=== PATIENT | male | born 2000 | race Caucasian/White ===

== ENCOUNTER 2025-03-02 19:12 | Emergency (ER) | payer OTHER, SELFPAY ==
[2025-03-02 19:40] VITALS: BP 142/83; PULSE 84; RESP 16; TEMP 36.9; O2SAT 98; BMI 28.1
--- NOTE | 2025-03-02 20:59 | ED.GENADULT ---
HPI - General Adult General Chief complaint: Extremity Pain/Injury, Upper Stated complaint: Punctured Rt Pointer finger Time Seen by Provider: 03/02/25 20:55 Source: patient Mode of arrival: ambulatory Limitations: no limitations History of Present Illness HPI narrative: 24-year-old male coming in today with a puncture wound to the right pointer finger. Patient was at work working with a hydraulic hose and high pressure oil came out of that hose and punctured his finger. Patient states that he go below the what he should do next and he read that the oils extremely toxic he should come in for evaluation. He states that his last tetanus shot was a year ago. Denies other injury. Related Data Previous Rx's ?Medication ?Instructions ?Recorded amoxicillin 875 mg-potassium 1 tab PO BID 7 days #14 tabs 03/02/25 clavulanate 125 mg tablet Allergies Allergy/AdvReac Type Severity Reaction Status Date / Time No Known Drug Allergies Allergy Verified 03/02/25 19:48 Review of Systems Status of ROS: Reports: 6 or more systems reviewed and unremarkable except as noted in History and below Exam Narrative: Exam Narrative: Well-nourished well-developed patient in no acute distress. Alert and oriented. Answers questions appropriately. Mood and affect are appropriate. Thoughts are goal oriented and rational. No tangential or magical thinking noted. Patient speaks in full sentences without needing to catch his breath. HEENT: Normocephalic atraumatic. Pupils are equally round reactive to light. Extraocular muscles are intact. Conjunctivae are moist without any icterus noted. Extremities: Patient has a very small puncture wound on the pad of the pointer finger on the right. The pad of the finger swollen. He has no tenderness over the bony part of the distal phalanx. The remainder the fingers entirely normal. The wound is clean. Skin: Well perfused Const: Vital Signs, click to edit/add: Vital Signs - 24 hr 03/02/25 19:40 Temperature 98.5 F Pulse Rate [Right Pulse Oximeter] 84 Respiratory Rate 16 Blood Pressure [Ri ght Upper Arm] 142/83 H Pulse Oximetry 98 Oxygen Delivery Me thod Room Air Course Vital Signs Vital signs: Initial Vital Signs Temperature 98.5 F 03/02/25 19:40 Temperature Source Temporal Artery Scan 03/02/25 19:40 Pulse Rate 84 03/02/25 19:40 Respiratory Rate 16 05/02/25 19:40 Blood Pressure 142/83 H 03/02/25 19:40 Blood Pressure Mean 102 03/02/25 19:40 Blood Pressure Position Sitting 03/02/25 19:40 Pulse Oximetry 98 03/02/25 19:40 Oxygen Delivery Method Room Air 03/02/25 19:40 Vital Signs Temperature 98.5 F 03/02/25 19:40 Pulse Rate 84 03/02/25 19:40 Respiratory Rate 16 03/02/25 19:40 Blood Pressure 142/83 H 03/02/25 19:40 Pulse Oximetry 98 03/02/25 19:40 Oxygen Delivery Method Room Air 03/02/25 19:40 Temperature 98.5 F 03/02/25 19:40 Pulse Rate 84 03/02/25 19:40 Respiratory Rate 16 03/02/25 19:40 Blood Pressure 142/83 H 03/02/25 19:40 Pulse Oximetry 98 03/02/25 19:40 Oxygen Delivery Method Room Air 03/02/25 19:40 Medical Decision Making MDM Narrative Medical decision making narrative: 24-year-old male with injury to the tip of the finger. At this time I do recommend antibiotics given the location and potential depth of the injury. I do not think that he has any bony injuries so imaging was not done today. We discussed wound hygiene and reasons for follow-up. Discharge Plan Discharge Clinical Impression: Puncture wound Patient Disposition: Home, Self-Care Condition: Stable Additional Instructions: Take all antibiotics as prescribed. Keep wound clean and dry. Do not soak such as taking baths, swimming or doing dishes. Watch for signs and symptoms of infection including increasing redness of the area, purulent drainage, or fever. If this occurs follow-up right away with your doctor or return to the ER- I do not expect this to occur as you will be placed on antibiotics. Follow-up with your primary care provider with any concerns. Prescriptions: New amoxicillin-pot clavulanate 875-125 mg tablet 1 tab PO BID 7 Days Qty: 14 0RF Stand Alone Forms: MyHealth Info Instructions
== END 2025-03-02 21:19 | disposition home or self-care (01) ==
LOC: ED 21:18
PROVIDERS: Emergency Provider Family Medicine
DX: S61.230A Puncture wound without foreign body of right index finger without damage to nail, initial encounter (principal); W26.8XXA Contact with other sharp object(s), not elsewhere classified, initial encounter; Y93.89 Activity, other specified; Y92.9 Unspecified place or not applicable; Y99.0 Civilian activity done for income or pay
CPT/HCPCS: 99283; 99284